=== PATIENT | female | born 1945 | race Native Hawaiian/Other Pacific Islander ===

== ENCOUNTER 2017-12-04 11:29 | Emergency (ER) | payer MEDICARE ==
[2017-12-04 11:53] VITALS: BMI 24.7
[2017-12-04 11:57] VITALS: TEMP 98.1
--- NOTE | 2017-12-04 13:32 | C.PDOC ---
History Of Present Illness 72 y/o female with history of HTN presents to ED with complaints of elevated blood pressure and headache. Patient states she took HTN medication this morning as instructed and denies blurry vision, chest pain, sob, fever, cough or weakness. No other complaints at this time. Time Seen by Provider: 12/04/17 13:06 Chief Complaint (Nursing): High Blood Pressure History Per: Patient History/Exam Limitations: no limitations Onset/Duration Of Symptoms: Hrs Current Symptoms Are (Timing): Still Present Associated Symptoms: Headache Past Medical History Reviewed: Historical Data, Nursing Documentation, Vital Signs Vital Signs: Last Vital Signs Temp 98.1 F 12/04/17 11:53 Pulse 96 H 12/04/17 14:23 Resp 18 12/04/17 14:23 BP 153/89 H 12/04/17 14:23 Pulse Ox 100 12/04/17 15:56 - Medical History PMH: HTN Surgical History: No Surg Hx - [facility] Procedures CLOSED ENDOSCOPIC BIOPSY OF LARGE INTESTINE (08/06/13) ESOPHAGOGASTRODUODENOSCOPY [EGD] W/CLOSED BIOPSY (08/20/13) Family History: States: No Known Family Hx - Social History Hx Alcohol Use: No Hx Substance Use: No - Immunization History Hx Tetanus Toxoid Vaccination: No Hx Influenza Vaccination: Yes Hx Pneumococcal Vaccination: No Review Of Systems Constitutional: Negative for: Fever, Chills Eyes: Negative for: Vision Change Respiratory: Negative for: Cough, Shortness of Breath Skin: Negative for: Rash Neurological: Positive for: Headache. Negative for: Weakness, Numbness Physical Exam - Physical Exam Appears: Non-toxic, No Acute Distress Skin: Warm, Dry, No Rash Head: Atraumatic, Normacephalic Eye(s): bilateral: Normal Inspection Oral Mucosa: Moist Neck: Normal ROM, Supple Cardiovascular: Rhythm Regular Respiratory: Normal Breath Sounds, No Rales, No Rhonchi, No Wheezing Gastrointestinal/Abdominal: Soft, No Tenderness, No Guarding, No Rebound Neurological/Psych: Oriented x3, Normal Speech, Normal Cognition, Normal Motor, Normal Sensation Gait: Steady ED Course And Treatment - Laboratory Results Result Diagrams: 12/04/17 14:37 12/04/17 14:37 ECG: Interpreted By Me, Viewed By Me ECG Rhythm: Sinus Rhythm Interpretation Of ECG: Left axis deviation Rate From EC (BPM) O2 Sat by Pulse Oximetry: 100 (RA) Disposition - Disposition Referrals: Vik Caban MD [Staff Provider] - Disposition: HOME/ ROUTINE Disposition Time: 15:10 Condition: GOOD Additional Instructions: Thank you for letting us take care of you today. The emergency medical care you received today was directed at your acute symptoms. If you were prescribed any medication, please fill it and take as directed. It may take several days for your symptoms to resolve. Return to the Emergency Department if your symptoms worsen, do not improve, or if you have any other problems. Please contact your doctor or call one of the physicians/clinics you have been referred to that are listed on the Patient Visit Information form that is included in your discharge packet. Bring any paperwork you were given at discharge with you along with any medications you are taking to your follow up visit. Our treatment cannot replace ongoing medical care by a primary care provider (PCP) outside of the emergency department. Thank you for allowing the [facility] team to be part of your care today. Follow up with Dr. Caban in his office for re-evaluation and further management. Instructions: High Blood Pressure in Adults Forms: [email or web address] ([place]) - Clinical Impression Clinical Impression: Essential hypertension - Scribe Statement The provider has reviewed the documentation as recorded by the Scribe Carly Sykes All medical record entries made by the Scribe were at my direction and personally dictated by me. I have reviewed the chart and agree that the record accurately reflects my personal performance of the history, physical exam, medical decision making, and the department course for this patient. I have also personally directed, reviewed, and agree with the discharge instructions and disposition.
--- NOTE | 2017-12-04 14:16 | CT ---
PROCEDURE: CT HEAD WITHOUT CONTRAST. HISTORY: r/o ICH COMPARISON: None available. TECHNIQUE: Axial computed tomography images were obtained through the head/brain without intravenous contrast. Radiation dose: Total exam DLP = 703.99 mGy-cm. This CT exam was performed using one or more of the following dose reduction techniques: Automated exposure control, adjustment of the mA and/or kV according to patient size, and/or use of iterative reconstruction technique. FINDINGS: HEMORRHAGE: No intracranial hemorrhage. BRAIN: Diffuse atrophy with prominence of the ventricles and sulci noted. No mass effect or edema. Intracranial atherosclerosis. Bilateral basal ganglia calcifications. Scattered white matter hypodensities, which are nonspecific, but often seen with chronic microvascular ischemic disease. Please note that MRI with diffusion imaging is more sensitive in the detection of acute ischemic event. VENTRICLES: No hydrocephalus. CALVARIUM: Unremarkable. PARANASAL SINUSES: Unremarkable as visualized. No significant inflammatory changes. MASTOID AIR CELLS: Unremarkable as visualized. No inflammatory changes. OTHER FINDINGS: None. IMPRESSION: No acute intracranial pathology identified. Findings as above.
[2017-12-04 14:24] VITALS: BP 153/89; PULSE 96; RESP 18
[2017-12-04 14:44] LABS: BASO # 0.1 K/uL (0.0-0.2); BASO % 0.8 % (0.0-2.0); EOS # 0.1 K/uL (0.0-0.7); EOS % 1.2 % (0.0-4.0); HEMOGLOBIN 12.7 g/dL (11.0-16.0); LYMPH # 1.7 K/uL (1.0-4.3); LYMPH % 21.1 % (20.0-40.0); MEAN CELL VOLUME 89.4 fL (81.0-99.0); MEAN CORPUSCULAR HGB CONC 33.6 g/dL (33.0-37.0); MEAN PLATELET VOLUME 8.9 fL (7.2-11.7); MONO # 0.5 K/uL (0.0-0.8); MONO % 6.9 % (0.0-10.0); NEUT # 5.6 K/uL (1.8-7.0); RBC 4.23 Mil/uL (3.80-5.20); RED CELL DISTRIBUTION WIDTH 14.2 % (11.5-14.5)
[2017-12-04 14:57] LABS: ALB/GLOB RATIO 1.1 (1.0-2.1); ALBUMIN 4.5 g/dL (3.5-5.0); ALT/SGPT 41 U/L (9-52); AST/SGOT 47 U/L (14-36); BLOOD UREA NITROGEN 12 mg/dL (7-17); CALCIUM 10.1 mg/dl (8.6-10.4); GFR AFRICAN-AMERICAN > 60; GFR NON-AFRICAN AMERICAN 55
[2017-12-04 15:52] VITALS: O2SAT 100
--- NOTE | 2017-12-05 11:46 | CARD ---
APPROVED REPORT EKG Measurement Heart [id number] <Conclusion> Normal sinus rhythm Normal ECG
== END 2017-12-04 15:27 | disposition home or self-care (01) ==
LOC: C.ER 11:29
DX: I10 Essential (primary) hypertension (principal)